=== PATIENT | female | born 1945 | race Caucasian/White ===

== ENCOUNTER 2016-03-08 15:49 | Outpatient (CLI) ==
[2015-08-10 02:35] VITALS: BMI 26.9
--- NOTE | 2016-03-08 17:11 | DI ---
EXAM: Radiographs, right foot HISTORY: Right foot pain. Previous fifth digit trauma. COMPARISON: None available. TECHNIQUE: Three views. FINDINGS: Bone mineralization is decreased. There is a nondisplaced fracture involving the medial base of the fifth proximal phalanx seen best on the oblique view. There is no dislocation. The scot nt spaces are maintained. No focal soft tissue abnormality is seen. IMPRESSION: Nondisplaced fracture of the base of the fifth proximal phalanx.
== END 2016-03-08 15:50 | disposition home or self-care (01) ==
LOC: RAD 15:49
PROVIDERS: ATTEND Physician Assistant
DX: M79.671 Pain in right foot (principal)

== ENCOUNTER 2016-03-16 14:24 | Outpatient (CLI) | payer OTHER ==
[2015-08-10 02:35] VITALS: BMI 26.9
--- NOTE | 2016-03-16 22:59 | DI ---
EXAM: PA and lateral views of the chest HISTORY: Type 2 diabetes mellitus with foot ulcer COMPARISON: 09/15/2014 FINDINGS: Mild chronic interstitial prominence is seen. No focal consolidation, pleural effusion or pneumotho rax is identified. The cardiomediastinal silhouette is within normal limits. There is calcified atherosclerotic plaque of the aorta. There is mild thoracic kyphosis and multilevel degenerative disc disease. IMPRESSION: No acute cardiopulmonary findings
--- NOTE | 2016-03-16 23:03 | DI ---
EXAM: Three views of the right foot HISTORY: Type 2 diabetes mellitus with foot ulcer COMPARISON: 03/08/2016 FINDINGS: The previously noted fracture of the proximal aspect of the fifth proximal phalanx is less conspicuo us in this exam and likely unchanged. An os naviculare is seen. No gross osseous erosive changes id entified. Atherosclerotic calcifications are present. Small heel spurs are present. IMPRESSION: Previously noted fracture of the base of the fifth proximal phalanx is less conspicuous and likely u nchanged. No gross osseous erosive changes. Heal spurs.
--- NOTE | 2016-03-16 23:05 | DI ---
EXAM: Three views left foot HISTORY: Type 2 diabetes mellitus with foot ulcer COMPARISON: None available FINDINGS: No fracture or dislocation is identified. No significant joint space loss is seen. No osseous eros oracio changes identified. Small heel spurs are seen. A small ossicle projects dorsal to the navicula r, likely degenerative in etiology. Atherosclerotic calcifications are present. IMPRESSION: No acute osseous abnormality. No gross osseous erosive changes. Heal spurs.
== END 2016-03-16 14:25 | disposition home or self-care (01) ==
LOC: LAB 14:24
PROVIDERS: ATTEND Surgery Plastic and Reconstructive Surgery
DX: E11.621 Type 2 diabetes mellitus with foot ulcer (principal); L97.512 Non-pressure chronic ulcer of other part of right foot with fat layer exposed
CPT/HCPCS: 36415; 83036; 84134; 93005; 93010

== ENCOUNTER 2016-07-22 13:05 | Outpatient (CLI) ==
[2015-08-10 02:35] VITALS: BMI 26.9
[2016-07-22 13:51] LABS: CREATININE 0.94 mg/dL (0.60-1.30)
== END 2016-07-22 13:06 | disposition home or self-care (01) ==
LOC: RAD 13:05
PROVIDERS: ATTEND Surgery Plastic and Reconstructive Surgery
DX: E11.621 Type 2 diabetes mellitus with foot ulcer (principal)
CPT/HCPCS: 36415; 82565

== ENCOUNTER 2016-07-23 12:59 | Outpatient (CLI) | payer OTHER ==
[2015-08-10 02:35] VITALS: BMI 26.9
--- NOTE | 2016-07-23 15:05 | MRI ---
EXAM: MRI right foot without and with contrast. HISTORY: Right foot fifth metatarsal osteomyelitis. Fifth digit removed due to gain grain and June 2016. Pain fifth metatarsal.. TECHNIQUE: Using a local extremity coil on a high field strength magnet multiplanar multisequence m agnet resonance imaging was performed of the right mid to forefoot pre and post intravenous gadolini um contrast administration. 15 ml Omniscan administered for the examination. Note this constitutes incomplete MR evaluation of the right hind-foot. COMPARISON: Three-view plain film examination right foot 03/16/2016. FINDINGS: The alignment of the right mid to forefoot shows no dislocation or joint subluxations. I ntact Lisfranc ligament fibers. Patient status post amputation of the right fifth toe at the metatarsal phalangeal joint level. The re is likely a component of scar/granulation tissue/fibrosis with postsurgical artifact within the s oft tissue stump. Some trace increased bone marrow STIR signal intensity over the fifth metatarsal head. No decreased T1 marrow signal intensity replacement or cortical bone destruction. Some mild associated bone marrow enhancement. This may be reactive. No discrete drainable soft tissue absces s. The interposed between the abductor hallucis tendon and flexor hallucis longus tendon at the mid fir st metatarsal level is a soft tissue mass measuring 23 mm transverse by 26 mm deep by 44 mm in lengt h. Fusiform shape. Homogeneous increased T1 signal intensity. Homogeneous fat suppression on T2 f at-suppressed and STIR weighted imaging. No definitive internal enhancement. Question lipoma. Thi s may be inter muscular. Some mild increased T2 signal intensity intramuscular over the midfoot. Ov erall muscle bulk shows some fatty infiltration/atrophy. First through fourth dorsal extensor and p lantar flexor tendons intact without tenosynovitis. IMPRESSION: Amputation right fifth toe at the metatarsal phalangeal joint level. Scar/granulation tissue/fibrosis with postsurgical artifact. Cellulitis may be present. No MR evidence to support on going acute osteomyelitis involving the residual fifth metatarsal. Some mild bone marrow edema with enhancement may be reactive. No discrete drainable soft tissue abscess. 44 mm inter muscular lipoma medial midfoot Nonspecific myositis.
== END 2016-07-23 13:00 | disposition home or self-care (01) ==
LOC: RAD 12:59
PROVIDERS: ATTEND Surgery Plastic and Reconstructive Surgery
DX: M86.9 Osteomyelitis, unspecified (principal)

== ENCOUNTER 2016-11-24 13:02 | Emergency (ER) ==
[2016-11-24 13:11] VITALS: BP 162/71; TEMP 7.4; BMI 30.2
--- NOTE | 2016-11-24 13:44 | DI ---
EXAM: Three views of the right elbow. History: Right elbow trauma. 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 There is posterior soft tissue swelling. Osteopenia. No defi nite new acute fractures identified.
--- NOTE | 2016-11-24 13:46 | CT ---
EXAM: CT of the right knee without contrast History: Right knee trauma. Technique: Multiplanar CT images through the right knee were obtained without the administration of IV contrast Findings: Atherosclerotic vascular calcifications. No acute fracture or dislocation. Osteopenia. M ild to moderate tricompartmental joint space narrowing with small osteophytes. There is chondrocalci nosis within the menisci. Moderate joint effusion. Impression: 1. No acute osseous abnormality. 2. Moderate joint effusion. 3. Mild to moderate arthritis. 4. Chondrocalcinosis. 5. Osteopenia
--- NOTE | 2016-11-24 13:48 | DI ---
EXAM: Three views of the right shoulder. History: Right shoulder trauma. Comparison: Right shoulder radiograph 02/09/2014 Findings: Osteopenia. No acute fracture or dislocation. Moderate narrowing of the right AC joint. Mild narrowing of the right glenohumeral joint. Interstitial thickening seen within the right lung. Atherosclerotic vascular calcifications. Impression: 1. No acute osseous abnormality. 2. Arthritis. 3. Atherosclerotic vascular disease. 4. Interstitial thickening within the right lung could represent edema, pneumonia or be chronic in n ature.
--- NOTE | 2016-11-24 14:02 | ED.PDOC ---
General ED Provider: Dr. MEENU CRANE-ER Chief Complaint: Knee Pain/Injury Stated Complaint: i fell yesterday--my shoulder, my elbow and my knee hurts--my hip does not hurt Time Seen by Physician: 13:10 Mode of Arrival: Wheelchair Information Source: Patient, Family Exam Limitations: No limitations Primary Care Provider: DANIEL LAN Nursing and Triage Documentation Reviewed and Agree: Yes Musculoskeletal Complaint Exam - Knee Pain Complaint/Exam Mechanism of Injury: Reports: Trauma Onset/Duration: yesterday Symptoms Are: Still present Onset of Pain: Reports: Immediate Initial Severity: Mild Current Severity: Moderate Location: Reports: Discrete (right knee--trouble with flexion) Character: Reports: Dull, Aching, Stiffness Aggravating: Reports: Movement, Weight bearing Associated Signs and Symptoms: Denies: Swelling, Redness, Bruising, Fever, Weakness, Numbness, Tingling Able to Bear Weight: No (due to knee pain) Septic Arthritis Risk Factors: Reports: None Knee Findings: Present: Swelling, Tenderness, Limited range of motion Tenderness: Present: Pre-patellar, Joint Dayanara Test Positive: No Sara Test Positive: No Limited Range of Motion: Present: Active, Passive, Flexion, Extension Differential Diagnoses: Contusion, Closed Fracture, Sprain, Strain Review of Systems - Review Of Systems Constitutional: Reports: No symptoms Eyes: Reports: No symptoms Ears, Nose, Mouth, Throat: Reports: No symptoms Respiratory: Reports: No symptoms Cardiac: Reports: No symptoms GI: Reports: No symptoms : Reports: No symptoms Musculoskeletal: Reports: Joint pain, Joint swelling, Muscle pain Skin: Reports: No symptoms Neurological: Reports: No symptoms Endocrine: Reports: No symptoms Hematologic/Lymphatic: Reports: No symptoms All Other Systems: Reviewed and Negative Past Medical History - Past Medical History Previously Healthy: No Endocrine: Reports: DM 2, Dyslipidemia Cardiovascular: Reports: Hypertension Respiratory: Reports: COPD Hematological: Reports: None Gastrointestinal: Reports: None Genitourinary: Reports: None Neuro/Psych: Reports: None Musculoskeletal: Reports: Arthritis, Joint Pain Cancer: Reports: None Last Menstrual Period: menopause Other Pertinent Past Medical History: Multiple falls. - Surgical History General Surgical History: Reports: Orthopedic (Fractured Distal right humerous. ), Unknown - Family History Family History: Reports: Unknown - Social History Smoking Status: Current every day smoker Hx Substance Use: No Alcohol Screening: None Physical Exam - Physical Exam Appearance: Well-appearing, No pain distress, Well-nourished Pain Distress: Mild Eyes: ROMY, EOMI, Conjunctiva clear ENT: Ears normal, Nose normal, Oropharynx normal Neck: Supple Respiratory: Airway patent, Breath sounds clear, Breath sounds equal, Respirations nonlabored Cardiovascular: RRR, Pulses normal, No rub, No murmur GI/: Soft, Nontender, No masses, Bowel sounds normal, No Organomegaly Musculoskeletal: Limited ROM Skin: Warm, Dry, Normal color Neurological: Sensation intact, Motor intact, Reflexes intact, Cranial nerves intact, Alert, Oriented Psychiatric: Affect appropriate, Mood appropriate Interpretation - Radiology Interpretation Radiology Interpretation By: Radiologist Radiology Results: Negative Exam Interpreted: CT Scan Critical Care Note - Critical Care Note Total Time (mins): 0 Course - Course Orders, Labs, Meds: Orders Category Date Time Status CT KNEE RIGHT WITHOUT CONTRAST Stat RADS 11/24/16 13:08 Completed ELBOW, RIGHT MIN 3 VIEWS Stat RADS 11/24/16 13:09 Completed SHOULDER, RIGHT MIN 2V Stat RADS 11/24/16 13:09 Completed ms tamayo denies any hip pain--i wanted to order hip xrays but she declines--i informed her we could be missing a subtle hip fx but she declines Vital Signs: Temp Pulse Resp BP Pulse Ox 11/24/16 13:03 7.4 F L 76 20 162/71 H 95 Departure - Departure Time of Disposition: 14:07 Disposition: HOME SELF-CARE Discharge Problem: Injury of knee Instructions: Knee Pain (ED) Condition: Good Pt referred to PMD for follow-up: Yes Additional Instructions: use your pain meds at home--f/u with pcp Allergies/Adverse Reactions: Allergies morphine Adverse Reaction (Severe, Verified 11/24/16 13:13) Swelling codeine Adverse Reaction (Mild, Verified 11/24/16 13:13) Vomiting ibuprofen Adverse Reaction (Mild, Verified 11/24/16 13:13) Vomiting Home Medications: Ambulatory Orders Citalopram Hydrobromide [Celexa] 20 mg PO BEDTIME 11/18/12 Lovastatin [Mevacor] 20 mg PO DAILY 11/18/12 Glipizide [Glucotrol] 10 mg PO BID 05/31/14 Hydrocodone Bit/Acetaminophen [[place] 10-325] 1 each PO QID PRN 05/31/14 Montelukast Sodium [Singulair] 10 mg PO BEDTIME 09/15/14 Gemfibrozil 600 mg PO BID 08/10/15 Perphenazine/Amitriptyline HCl [Perphen-Amitrip 2 mg-25 mg Tab] 1 each PO BEDTIME 11/24/16 Disposition Discussed With: Patient, Family
== END 2016-11-24 14:25 | disposition home or self-care (01) ==
LOC: ED 13:02
DX: M25.561 Pain in right knee (principal); M25.511 Pain in right shoulder; M25.521 Pain in right elbow; W19.XXXA Unspecified fall, initial encounter; F17.210 Nicotine dependence, cigarettes, uncomplicated
CPT/HCPCS: 99283

== ENCOUNTER 2017-01-21 15:01 | Outpatient (CLI) ==
--- NOTE | 2017-01-21 15:48 | DI ---
EXAM: Two views of the chest. History: Cough. Comparison: Chest radiograph 03/16/2016 Findings: Heart size is normal. No focal consolidation. Atherosclerotic vascular calcifications. No appreciable pleural fluid and no pneumothorax. No change in the chronic interstitial thickening. No acute osseous abnormalities. Impression: Stable chronic interstitial thickening. No focal pneumonia
== END 2017-01-21 15:02 | disposition home or self-care (01) ==
LOC: RAD 15:01
PROVIDERS: ATTEND Physician Assistant
DX: R07.81 Pleurodynia (principal); R05 Cough
CPT/HCPCS: 93005; 93010

== ENCOUNTER 2017-01-22 11:05 | Outpatient (CLI) ==
[2017-01-22 11:24] LABS: BASOPHILS # (AUTO) 0.1 K/uL (0-0.2); BASOPHILS % (AUTO) 0.8 % (0.0-3.0); EOSINOPHILS # (AUTO) 0.3 K/ul (0.0-0.7); EOSINOPHILS % (AUTO) 2.9 % (0.0-7.0); HEMATOCRIT 37.3 % (37.0-47.0); HEMOGLOBIN 12.6 g/dl (12.0-16.0); IMMATURE GRANULOCYTE % (AUTO) 0.2 % (0.0-5.0); LYMPHOCYTES # (AUTO) 1.7 K/uL (0.60-3.4); MEAN CORPUSCULAR HEMOGLOBIN 31.8 pg (27.0-31.0); MEAN CORPUSCULAR HGB CONC 33.8 (31.8-35.4); MEAN CORPUSCULAR VOLUME 94.2 fl (81.0-99.0); MONOCYTES # (AUTO) 0.6 K/uL (0.4-2.0); MONOCYTES % (AUTO) 6.4 (0-10); NEUTROPHILS % (AUTO) 69.7; PLATELET COUNT 303 10^3/uL (140-440); RED BLOOD COUNT 3.96 10^6/ul (4.20-5.40)
[2017-01-22 11:43] LABS: ALBUMIN 3.2 g/dL (3.4-5.0); ALBUMIN/GLOBULIN RATIO 0.71; ANION GAP 16.4; BILIRUBIN,TOTAL 0.48 mg/dL (0.00-1.20); BUN/CREATININE RATIO 19.13; CALCIUM 9.7 mg/dL (8.2-10.2); CREATININE 1.15 mg/dL (0.60-1.30); POTASSIUM 4.4 mmol/L (3.5-5.10); TOTAL PROTEIN 7.7 g/dL (5.8-8.1)
[2017-01-22 12:01] LABS: D-DIMER 1268.5 ng/mL (<500)
== END 2017-01-22 11:06 | disposition home or self-care (01) ==
LOC: RAD 11:05 → LAB 11:06
PROVIDERS: ATTEND Physician Assistant
DX: R05 Cough (principal)
CPT/HCPCS: 36415; 80053; 85025; 85379

== ENCOUNTER 2017-04-15 14:01 | Outpatient (CLI) | payer OTHER ==
--- NOTE | 2017-04-15 14:52 | US ---
EXAM: ULTRASOUND LOWER EXTREMITY VENOUS DOPPLER EXAM HISTORY: Right leg pain. FINDINGS: Right lower extremity venous Doppler exam. Real time locke-scale, Doppler spectral analysis and color-flow Doppler imaging performed. The veins targeted for evaluation include the common femo ral, greater saphenous, profundus, femoral, popliteal, peroneal, anterior tibial and posterior tibial . The evaluated veins demonstrated normal spontaneous flow and compression without evidence of thro mbosis. IMPRESSION: No venous thrombosis identified within the areas evaluated.
== END 2017-04-15 14:02 | disposition home or self-care (01) ==
LOC: RAD 14:01
PROVIDERS: ATTEND Physician Assistant
DX: M79.661 Pain in right lower leg (principal)

== ENCOUNTER 2017-05-06 12:24 | Outpatient (CLI) | payer OTHER ==
--- NOTE | 2017-05-06 14:18 | DEXA ---
EXAM: Bone Densitometry DEXA HISTORY: Osteoporosis COMPARISON: None FINDINGS: DEXA scan of the lumbar spine was performed. Quality of the study is good. Bone mineral density is 0 .849 grams per square centimeter. T-score is negative 2.8. Z-score is negative 1.7. DEXA scan right and left hip was performed. Quality of the study is good. Bone mineral density mean is 0.518 grams per square centimeter. T-score is negative 3.9. Z-score is negative 2.8. Bone life claims examiner al density of the femoral neck mean is 0.537 with a T score of negative 3.6 and a Z score of negative 2.3. IMPRESSION: 1. Lumbar spine: Osteoporosis. 2. Right and left hip: Osteoporosis 3. Right and left femoral neck: Osteoporosis 4. 10 year risk for major osteoporotic fracture is 38.5% and for hip fracture is 21.9%. Reference Values according to World Health Organization criteria: T score greater than -1 is normal T score -1 to -2.5 is osteopenia T score less than -2.5 is osteoporosis.
== END 2017-05-06 12:25 | disposition home or self-care (01) ==
LOC: RAD 12:24
PROVIDERS: ATTEND Physician Assistant
DX: Z78.0 Asymptomatic menopausal state (principal)

== ENCOUNTER 2017-05-13 14:48 | Emergency (ER) ==
[2017-05-13 14:49] VITALS: BMI 30.2
[2017-05-13 14:56] VITALS: BP 105/66; TEMP 96.9
--- NOTE | 2017-05-13 15:40 | ED.PDOC ---
General ED Provider: Dr. MEENU KANG Chief Complaint: Non-specific Complaint Stated Complaint: Vomiting. State has been prescibed kayexlate to tx her potassium by Dr Alvarado with instructions to take 120 ml X 1 dose. Developed acute nausea and vomiting. Time Seen by Physician: 15:30 Mode of Arrival: Walk-In Information Source: Patient Exam Limitations: No limitations Primary Care Provider: DANIEL LAN Nursing and Triage Documentation Reviewed and Agree: Yes Reviewed sepsis parameters & appropriate labs ordered?: Yes System Inflammatory Response Syndrome: Not Applicable Sepsis Protocol: For patient's 13 years and over: Temp is 96.8 and below OR 101 and greater Pulse >90 BPM Resp >20/minute Acutely Altered Mental Status Are patient's symptoms suggestive of a new infection, such as: -Pneumonia -Skin, Soft Tissue -Endocarditis -UTI -Bone, Joint Infection -Implantable Device -Acute Abdominal Infection -Wound Infection -Meningitis -Blood Stream Catheter Infection -Unknown System Inflammatory Response Syndrome: Not Applicable GI Complaint Exam - Vomiting/Diarrhea Complaint/Exam Symptoms Are: Resolved Episodes of Vomiting over last 24 Hours: 2 Episodes of Diarrhea Over Last 24 Hours: 0 Initial Severity: Moderate Current Severity: None Character of Vomiting: Reports: Bilious Character of Diarrhea: Reports: Watery Aggravating: Reports: Position Alleviating: Reports: None Associated Signs and Symptoms: Reports: Dizziness Related History: Reports: Recent antibiotics. Denies: Similar episode Recent Positive Test: No Use of Oral Contraceptives: No Use of Depoprovera: No Compliant With Contraceptive Use: No Non-GI Risk Factors: Reports: Vomiting due to cardiac Surgical Obstruction Risk Factors: Reports: Bilious emesis Related Surgical History: Reports: None Abdominal Findings: Present: None Kussmaul Respirations Present: Yes Differential Diagnoses: Other (medication adverse effect) Review of Systems - Review Of Systems Constitutional: Reports: Malaise, Weakness Eyes: Reports: No symptoms Ears, Nose, Mouth, Throat: Reports: No symptoms Respiratory: Reports: No symptoms Cardiac: Reports: No symptoms GI: Reports: Nausea, Vomiting : Reports: Burning, Dysuria, Pain, Urgency Musculoskeletal: Reports: No symptoms Skin: Reports: No symptoms Neurological: Reports: No symptoms Endocrine: Reports: No symptoms Hematologic/Lymphatic: Reports: No symptoms All Other Systems: Reviewed and Negative Past Medical History - Past Medical History Previously Healthy: No Endocrine: Reports: DM 2, Dyslipidemia Cardiovascular: Reports: Hypertension Respiratory: Reports: COPD Hematological: Reports: None Gastrointestinal: Reports: None Genitourinary: Reports: None, Other (CKD) Neuro/Psych: Reports: None Musculoskeletal: Reports: Arthritis, Joint Pain Cancer: Reports: None Last Menstrual Period: n/a Other Pertinent Past Medical History: Multiple falls. - Surgical History General Surgical History: Reports: Orthopedic (Fractured Distal right humerous. ), Unknown - Family History Family History: Reports: Unknown - Social History Smoking Status: Current every day smoker Hx Substance Use: No Alcohol Screening: None Lives: With family Physical Exam - Physical Exam Appearance: Ill-appearing Ill-appearing: Severe Pain Distress: Moderate Eyes: ROMY, EOMI, Conjunctiva clear ENT: Ears normal, Nose normal, Oropharynx normal Respiratory: Airway patent, Breath sounds clear, Breath sounds equal, Respirations nonlabored Cardiovascular: RRR, Pulses normal, No rub, No murmur GI/: No Organomegaly, Tender, Bowel sounds hypoactive Musculoskeletal: Normal strength, ROM intact, No edema, No calf tenderness Skin: Warm, Dry, Normal color Neurological: Sensation intact, Motor intact, Reflexes intact, Cranial nerves intact, Alert, Oriented Psychiatric: Affect appropriate, Mood appropriate Re-Evaluation - Re-Evaluation Time of Re-Evaluation: 18:00 Status: Improved Vital Signs Stable: Yes Appearance: NAD Lungs: Clear Skin: Warm and Dry Neuro: Alert and Oriented X3 CV: RRR Critical Care Note - Critical Care Note Total Time (mins): 30 Course - Course Hematology/Chemistry: 05/13/17 15:50 05/13/17 15:50 Orders, Labs, Meds: Lab Review 05/13/17 05/13/17 05/13/17 15:50 15:50 15:50 WBC 9.25 RBC 3.83 L Hgb 12.4 Hct 36.7 L MCV 95.8 MCH 32.4 H MCHC 33.8 RDW Coeff of Rebecca 13.1 Plt Count 324 Immature Gran % (Auto) 0.2 Neut % (Auto) 62.3 Lymph % (Auto) 26.9 [facility] % (Auto) 6.5 Eos % (Auto) 2.8 Baso % (Auto) 1.3 Immature Gran # (Auto) 0.0 Neut # (Auto) 5.8 Lymph # (Auto) 2.5 [facility] # (Auto) 0.6 Eos # (Auto) 0.3 Baso # (Auto) 0.1 Sodium 139 Potassium 4.0 Chloride 106 Carbon Dioxide 19 L Anion Gap 18.0 BUN 30 H Creatinine 1.36 H Estimated GFR (MDRD) 39.00 BUN/Creatinine Ratio 22.05 Glucose 109 Lactic Acid 5.9 Calcium 9.8 Magnesium 1.6 L Total Bilirubin 0.4 AST 12 L ALT 11 L Alkaline Phosphatase 96 Total Protein 7.6 Albumin 3.5 Globulin 4.1 Albumin/Globulin Ratio 0.85 Urine Color Urine Clarity Urine pH Ur Specific [place] Urine Protein Urine Glucose (UA) Urine Ketones Urine Blood Urine Nitrite Urine Bilirubin Urine Urobilinogen Ur Leukocyte Esterase Urine Microscopic WBC Ur Squamous Epith Cells Urine Bacteria 05/13/17 16:57 WBC RBC Hgb Hct MCV MCH MCHC RDW Coeff of Rebecca Plt Count Immature Gran % (Auto) Neut % (Auto) Lymph % (Auto) [facility] % (Auto) Eos % (Auto) Baso % (Auto) Immature Gran # (Auto) Neut # (Auto) Lymph # (Auto) [facility] # (Auto) Eos # (Auto) Baso # (Auto) Sodium Potassium Chloride Carbon Dioxide Anion Gap BUN Creatinine Estimated GFR (MDRD) BUN/Creatinine Ratio Glucose Lactic Acid Calcium Magnesium Total Bilirubin AST ALT Alkaline Phosphatase Total Protein Albumin Globulin Albumin/Globulin Ratio Urine Color Yellow Urine Clarity Cloudy Urine pH 5.5 Ur Specific [place] 1.015 Urine Protein Negative Urine Glucose (UA) Negative Urine Ketones Negative Urine Blood Negative Urine Nitrite Positive Urine Bilirubin Negative Urine Urobilinogen 1.0 Ur Leukocyte Esterase 3+ Urine Microscopic WBC 30-50 Ur Squamous Epith Cells 2-5 Urine Bacteria 3+ Orders Category Date Time Status CBC W/ AUTO DIFF Stat LAB 05/13/17 15:50 Completed CMP [COMPREHENSIVE METABOLIC PANEL] Stat LAB 05/13/17 15:50 Completed LACTIC ACID Stat LAB 05/13/17 15:50 Completed MAGNESIUM Stat LAB 05/13/17 15:50 Completed UA [URINALYSIS C & S IF INDICATED] Stat LAB 05/13/17 16:57 Completed URINE CULTURE Stat LAB 05/13/17 16:57 Received Vital Signs: Temp Pulse Resp BP Pulse Ox 05/13/17 14:49 96.9 F L 83 16 105/66 96 Departure - Departure Time of Disposition: 18:20 Disposition: HOME SELF-CARE Discharge Problem: UTI (urinary tract infection) Qualifiers: Urinary tract infection type: acute cystitis Hematuria presence: without hematuria Qualified Code(s): N30.00 - Acute cystitis without hematuria Nausea & vomiting Qualifiers: Vomiting type: unspecified Vomiting Intractability: unspecified Qualified Code( s): R11.2 - Nausea with vomiting, unspecified CKD (chronic kidney disease) Qualifiers: Chronic kidney disease stage: stage 3 (moderate) Qualified Code(s): N18.3 - Chronic kidney disease, stage 3 (moderate) Instructions: Urinary Tract Infection in Women (ED), Acute Nausea and Vomiting (ED) Condition: Good Pt referred to PMD for follow-up: Yes (1 week) IPMP verified?: No Additional Instructions: Stay well hydrated Take all meds Follow up with PCP and Share Holder Prescriptions: Nitrofurantoin Monohyd/M-Cryst [Macrobid 100 mg Capsule] 100 mg PO BID #20 capsule Allergies/Adverse Reactions: Allergies morphine Adverse Reaction (Severe, Verified 05/13/17 15:07) Swelling codeine Adverse Reaction (Mild, Verified 05/13/17 15:07) Vomiting ibuprofen Adverse Reaction (Mild, Verified 05/13/17 15:07) Vomiting clopidogrel [From Plavix] Adverse Reaction (Verified 05/13/17 15:07) Home Medications: Ambulatory Orders Citalopram Hydrobromide [Celexa] 20 mg PO BEDTIME 11/18/12 Lovastatin [Mevacor] 20 mg PO DAILY 11/18/12 Glipizide [Glucotrol] 10 mg PO BID 05/31/14 Hydrocodone Bit/Acetaminophen [[place] 10-325] 1 each PO QID PRN 05/31/14 Montelukast Sodium [Singulair] 10 mg PO BEDTIME 09/15/14 Gemfibrozil 600 mg PO BID 08/10/15 Ergocalciferol (Vitamin D2) [Vitamin D2] 50,000 unit PO WEEKLY 05/13/17 Fluticasone/Vilanterol [Breo Ellipta Inhaler] 1 each IH DAILY 05/13/17 Nitrofurantoin Monohyd/M-Cryst [Macrobid 100 mg Capsule] 100 mg PO BID #20 capsule 05/13/17 Ondansetron [Zofran Odt] 4 mg PO Q8H #7 tab.rapdis 05/13/17 Perphenazine 2 mg PO BEDTIME 05/13/17 Ranitidine HCl 300 mg PO BEDTIME 05/13/17 Ticagrelor [Brilinta] 90 mg PO BID 05/13/17 Disposition Discussed With: Patient, Family
== END 2017-05-13 18:42 | disposition home or self-care (01) ==
LOC: ED 14:48
DX: N30.00 Acute cystitis without hematuria (principal); R11.2 Nausea with vomiting, unspecified; N18.3 Chronic kidney disease, stage 3 (moderate); E11.9 Type 2 diabetes mellitus without complications; E78.5 Hyperlipidemia, unspecified; R53.1 Weakness; I10 Essential (primary) hypertension; R42 Dizziness and giddiness; R29.6 Repeated falls; Z79.899 Other long term (current) drug therapy; F17.210 Nicotine dependence, cigarettes, uncomplicated
CPT/HCPCS: 36415; 80053; 81001; 83605; 83735; 85025; 87086; 87186; 99283

== ENCOUNTER 2017-05-22 09:11 | Outpatient (CLI) | payer OTHER | END 2017-05-22 09:12 | disposition home or self-care (01) | LOC: LAB 09:11 | PROVIDERS: ATTEND Physician Assistant | DX: N39.0 Urinary tract infection, site not specified (principal) | CPT/HCPCS: 36415; 80053; 85025 ==

== ENCOUNTER 2017-07-17 11:53 | Outpatient (CLI) ==
[2017-07-17] MEDS ORDERED: ALBUTEROL 0.083% NEB NEB STA (13:01)
== END 2017-07-17 11:54 | disposition home or self-care (01) ==
LOC: CAR 11:53
PROVIDERS: ATTEND Physician Assistant
DX: J44.9 Chronic obstructive pulmonary disease, unspecified (principal)

== ENCOUNTER 2017-08-06 20:31 | Emergency (ER) ==
[2017-08-06 20:38] VITALS: BP 148/84; TEMP 98.5; BMI 30.9
--- NOTE | 2017-08-06 21:30 | CT ---
EXAM: CT right knee without contrast HISTORY: Right knee injury TECHNIQUE: Multi-slice transaxial helical with coronal, sagittal, and 3-D volume rendered images COMPARISON: None FINDINGS: The patella is fractured with comminution and minimal displacement. A large suprapatellar hemarthrosis is detected. No other fractures are detected. There is minimal marginal osteophyte for mation about the knee. The bones are osteopenic. Vascular calcifications are noted. The bones are free of suspicious osteolytic or osteoblastic lesions. IMPRESSION: 1. Minimally-displaced fracture of the patella. 2. Suprapatellar hemarthrosis. 3. Osteopenia. 4. Minimal tricompartmental osteoarthritis.
--- NOTE | 2017-08-06 21:51 | ED.PDOC ---
General ED Provider: Dr. MEENU CRANE-ER Chief Complaint: Knee Pain/Injury Stated Complaint: i fell on my knee--it hurts Time Seen by Physician: 20:35 Mode of Arrival: Wheelchair Information Source: Family Exam Limitations: No limitations Primary Care Provider: DANIEL LAN Nursing and Triage Documentation Reviewed and Agree: Yes Reviewed sepsis parameters & appropriate labs ordered?: Yes System Inflammatory Response Syndrome: Not Applicable Sepsis Protocol: For patient's 13 years and over: Temp is 96.8 and below OR 101 and greater Pulse >90 BPM Resp >20/minute Acutely Altered Mental Status Are patient's symptoms suggestive of a new infection, such as: -Pneumonia -Skin, Soft Tissue -Endocarditis -UTI -Bone, Joint Infection -Implantable Device -Acute Abdominal Infection -Wound Infection -Meningitis -Blood Stream Catheter Infection -Unknown Musculoskeletal Complaint Exam - Knee Pain Complaint/Exam Mechanism of Injury: Reports: Trauma Onset/Duration: one hour Symptoms Are: Still present Onset of Pain: Reports: Immediate Initial Severity: Mild Current Severity: Moderate Location: Reports: Discrete Character: Reports: Dull, Aching Aggravating: Reports: Movement, Weight bearing, Prolonged standing Associated Signs and Symptoms: Reports: Swelling Able to Bear Weight: No Gout Risk Factors: Reports: None Knee Findings: Present: Swelling, Tenderness, Limited range of motion Tenderness: Present: Joint Dayanara Test Positive: No Sara Test Positive: No Differential Diagnoses: Closed Fracture Review of Systems - Review Of Systems Constitutional: Reports: No symptoms Eyes: Reports: No symptoms Ears, Nose, Mouth, Throat: Reports: No symptoms Respiratory: Reports: No symptoms Cardiac: Reports: No symptoms GI: Reports: No symptoms : Reports: No symptoms Musculoskeletal: Reports: Joint pain Skin: Reports: No symptoms Neurological: Reports: No symptoms Endocrine: Reports: No symptoms Hematologic/Lymphatic: Reports: No symptoms All Other Systems: Reviewed and Negative Past Medical History - Past Medical History Previously Healthy: No Endocrine: Reports: DM 2, Dyslipidemia Cardiovascular: Reports: Hypertension Respiratory: Reports: COPD Hematological: Reports: None Gastrointestinal: Reports: None Genitourinary: Reports: None, Other (CKD) Neuro/Psych: Reports: None Musculoskeletal: Reports: Arthritis, Joint Pain Cancer: Reports: None Last Menstrual Period: NA Other Pertinent Past Medical History: Multiple falls. - Surgical History General Surgical History: Reports: Orthopedic (Fractured Distal right humerous. ), Unknown - Family History Family History: Reports: Unknown - Social History Smoking Status: Current some day smoker Hx Substance Use: No Alcohol Screening: None - Immunizations Tetanus Shot up to Date: Yes Physical Exam - Physical Exam Appearance: Well-appearing, No pain distress, Well-nourished Pain Distress: Moderate Eyes: ROMY ENT: Ears normal, Nose normal, Oropharynx normal Neck: Supple Respiratory: Airway patent, Breath sounds clear, Breath sounds equal, Respirations nonlabored Cardiovascular: RRR, Pulses normal, No rub, No murmur GI/: Soft, Nontender, No masses, Bowel sounds normal, No Organomegaly Musculoskeletal: Limited ROM Skin: Warm, Dry, Normal color Neurological: Sensation intact, Motor intact, Reflexes intact, Cranial nerves intact, Alert, Oriented Psychiatric: Affect appropriate Interpretation - Radiology Interpretation Radiology Interpretation By: Radiologist Radiology Results: Positive Exam Interpreted: CT Scan Critical Care Note - Critical Care Note Total Time (mins): 0 Course - Course Orders, Labs, Meds: Orders Category Date Time Status Ice Pack [ED APPLY ICE AFFECTED AREA] .ONCE EMERGENCY 08/06/17 20:44 Active Knee immobilizer [ED SPLINT APPLICATION] .ONCE EMERGENCY 08/06/17 21:[address] KNEE RIGHT WITHOUT CONTRAST Stat RADS 08/06/17 20:38 Completed Vital Signs: Temp Pulse Resp BP Pulse Ox 08/06/17 20:32 98.5 F 71 16 148/84 H 97 Departure - Departure Time of Disposition: 21:51 Disposition: HOME SELF-CARE Discharge Problem: Patella fracture Qualifiers: Encounter type: initial encounter Fracture type: closed Fracture morphology: unspecified fracture morphology Fracture alignment: nondisplaced Laterality: right Qualified Code(s): S82.001A - Unspecified fracture of right patella, initial encounter for closed fracture Instructions: Patellar Fracture (ED) Condition: Good Pt referred to PMD for follow-up: No IPMP verified?: No Additional Instructions: stay in immobilizer--nonweight bearing---use your pain meds at home--f/u with ortho clinc tomorrow (walk in) and take copies of your xray with you Allergies/Adverse Reactions: Allergies morphine Adverse Reaction (Severe, Verified 08/06/17 20:38) Swelling codeine Adverse Reaction (Mild, Verified 08/06/17 20:38) Vomiting ibuprofen Adverse Reaction (Mild, Verified 08/06/17 20:38) Vomiting clopidogrel [From Plavix] Adverse Reaction (Verified 08/06/17 20:38) Home Medications: Ambulatory Orders Citalopram Hydrobromide [Celexa] 20 mg PO BEDTIME 11/18/12 Lovastatin [Mevacor] 20 mg PO DAILY 11/18/12 Glipizide [Glucotrol] 10 mg PO BID 05/31/14 Hydrocodone Bit/Acetaminophen [[place] 10-325] 1 each PO QID PRN 05/31/14 Montelukast Sodium [Singulair] 10 mg PO BEDTIME 09/15/14 Gemfibrozil 600 mg PO BID 08/10/15 Ergocalciferol (Vitamin D2) [Vitamin D2] 50,000 unit PO WEEKLY 05/13/17 Fluticasone/Vilanterol [Breo Ellipta Inhaler] 1 each IH DAILY 05/13/17 Nitrofurantoin Monohyd/M-Cryst [Macrobid 100 mg Capsule] 100 mg PO BID #20 capsule 05/13/17 Ondansetron [Zofran Odt] 4 mg PO Q8H #7 tab.rapdis 05/13/17 Perphenazine 2 mg PO BEDTIME 05/13/17 Ranitidine HCl 300 mg PO BEDTIME 05/13/17 Ticagrelor [Brilinta] 90 mg PO BID 05/13/17 Disposition Discussed With: Patient, Family
== END 2017-08-06 22:05 | disposition home or self-care (01) ==
LOC: ED 20:31
DX: S82.001A Unspecified fracture of right patella, initial encounter for closed fracture (principal); W19.XXXA Unspecified fall, initial encounter; F17.210 Nicotine dependence, cigarettes, uncomplicated
CPT/HCPCS: 99283

== ENCOUNTER 2018-03-31 15:27 | Outpatient (CLI) ==
--- NOTE | 2018-03-31 15:50 | DI ---
EXAM: Two views of the chest. History: Cough. Comparison: Chest radiograph 01/21/2017 Findings: Heart size is within normal limits. There is bronchial wall thickening and more focal lef t lower lobe infiltrate. No appreciable pleural fluid and no pneumothorax. No acute osseous abnorma lities. Atherosclerotic vascular calcifications of the aortic knob. Impression: Bronchial wall thickening and left lower lobe pneumonia
== END 2018-03-31 15:28 | disposition home or self-care (01) ==
LOC: RAD 15:27
PROVIDERS: ATTEND Nurse Practitioner Family
DX: R05 Cough (principal)